=== PATIENT | female | born 2005 | race Caucasian/White ===

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

== ENCOUNTER 2024-02-27 13:33 | Outpatient (CLI) | payer OTHER | END 2024-02-27 23:59 | disposition critical access hospital (66) | LOC: EMS 13:33 | DX: R45.851 Suicidal ideations (principal); R45.89 Other symptoms and signs involving emotional state; R07.1 Chest pain on breathing; R20.2 Paresthesia of skin | CPT/HCPCS: A0425; A0427 ==

== ENCOUNTER 2024-02-27 13:54 | Emergency (ER) | payer OTHER ==
--- NOTE | 2024-02-27 15:01 | ED Physician Documentation ---
PD HPI MHE - Stated complaint Stated Complaint: SI/OD - Chief complaint Chief Complaint: MHE - History obtained from History obtained from: Patient, EMS, Other (Teacher) - Additional information Additional information: Patient is a 18-year-old female with a history of autism spectrum disorder and POTS presenting to the emergency department with Feelings of depression, stressed out and just wanting to go to sleep and never wake up. Patient was at an animal care giver vocational program and relayed to her teacher there that she had taken some drou-fmt-memizke allergy and antianxiety medication this morning.She was unable to tell EMS how much she took but to me she states she only took 1 pill each of her normal medication. She reports significant stressors in her home life as she is scheduled to move to [place] with her mother next month who is being transferred there with the [employer]. She also reports other stressors at home including feeling like she is in the middle of arguments between Grand mother and mother's boyfriend. Patient's teacher is at the bedside and does help with providing some history. Review of Systems Constitutional: denies: Fever Cardiac: denies: Chest pain / pressure Respiratory: denies: Dyspnea GI: denies: Abdominal Pain PD PAST MEDICAL HISTORY - Past Medical History Past Medical History: Yes Other Past Medical History: POTS, Inappropriate sinus tachycardia, anhidrosis, ID, Autism - Past Surgical History Past Surgical History: Yes General: Appendectomy - Present Medications Home Medications: Ambulatory Orders Medication Instructions Recorded Confirmed Loratadine [Claritin] 10 mg PO DAILY 08/19/22 02/27/24 Naproxen [EC-Naprosyn] See Rx Instructions .ROUTE .COMPLEX 08/19/22 02/27/24 cloNIDine [Catapres] 0.1 mg PO ONCE 08/19/22 02/27/24 - Allergies Allergies/Adverse Reactions: Allergies Allergy/AdvReac Type Severity Reaction Status Date / Time No Known Drug Allergies Allergy Verified 08/19/22 15:44 - Social History Does the pt smoke?: No Smoking Status: Never smoker Does the pt drink ETOH?: No Does the pt have substance abuse?: No - Immunizations Immunizations are current?: Yes - POLST Patient has POLST: No PD ED PE NORMAL - General General: Alert and oriented X 3, No acute distress, Well developed/nourished - HEENT HEENT: Atraumatic - Neck Neck: Supple, no meningeal sign - Cardiac Cardiac: RRR, Strong equal pulses - Respiratory Respiratory: No respiratory distress, Clear bilaterally - Abdomen Abdomen: Normal bowel sounds, Soft, Non tender, Non distended - Derm Derm: Warm and dry - Neuro Neuro: Alert and oriented X 3, No motor deficit, Normal speech - Psych Psych: Other (Anxious) Results - Vitals Vitals: Vital Signs - 24 hr 02/27/24 02/27/24 02/27/24 14:36 15:24 15:30 Temperature 37.6 C Heart Rate 110 H 111 H 95 Respiratory 14 19 14 Rate Blood Pressure 106/81 H 148/66 H 153/85 H O2 Saturation 97 99 98 02/27/24 02/27/24 02/27/24 16:00 16:30 17:00 Temperature Heart Rate 117 H 141 H 134 H Respiratory 25 H 25 H 18 Rate Blood Pressure 134/86 H 148/107 H 139/76 H O2 Saturation 100 99 100 Oxygen O2 Source Room air - EKG (time done) 1523 EKG releavant findings:: EKG personally interpreted by author of this note. Relevant findings are: Rate 106, sinus tachycardia, no STEMI, QTc 458 - Labs Labs: Laboratory Tests 02/27/24 02/27/24 02/27/24 16:13 16:40 16:40 WBC 11.3 H RBC 4.99 Hgb 14.9 Hct 46.6 MCV 93.4 MCH 29.9 MCHC 32.0 RDW 11.9 L Plt Count 335 MPV 10.3 Neut # (Auto) 9.1 H Lymph # (Auto) 1.8 [place] # (Auto) 0.3 Eos # (Auto) 0.0 Baso # (Auto) 0.0 Absolute Nucleated RBC 0.00 Nucleated RBC % 0.0 Sodium 139 Potassium 4.4 Chloride 100 L Carbon Dioxide 23 Anion Gap 16.0 H BUN 9 Creatinine 0.8 Estimated GFR (MDRD) 92 Glucose 105 H Calcium 10.8 H Magnesium 2.1 Total Bilirubin 0.6 AST 18 ALT 15 Alkaline Phosphatase 117 Total Creatine Kinase 57 Total Protein 8.7 Albumin 5.1 Globulin 3.6 Albumin/Globulin Ratio 1.4 Lipase 17 TSH 1.16 Urine Color YELLOW Urine Clarity CLEAR Urine pH 8.0 H Ur Specific [place] <=1.005 Urine Protein NEGATIVE Urine Glucose (UA) NEGATIVE Urine Ketones TRACE Urine Occult Blood NEGATIVE Urine Nitrite NEGATIVE Urine Bilirubin NEGATIVE Urine Urobilinogen 0.2 (NORMAL) Ur Leukocyte Esterase NEGATIVE Ur Microscopic Review NOT INDICATED Urine Culture Comments NOT INDICATED Urine HCG, Qual NEGATIVE Salicylates < 1.5 Urine Opiates Screen NEGATIVE Ur Buprenorphine Scrn NEGATIVE Ur Oxycodone Screen NEGATIVE Urine Methadone Screen NEGATIVE Acetaminophen < 0.1 Ur Barbiturates Screen NEGATIVE Ur Tricyclics Screen NEGATIVE Ur Phencyclidine Scrn NEGATIVE Ur Amphetamine Screen NEGATIVE U Methamphetamines Scrn NEGATIVE U Benzodiazepines Scrn NEGATIVE Urine Cocaine Screen NEGATIVE U Cannabinoids Screen NEGATIVE Ur Drug Screen Comment CUTOFF CONC BELOW: Ethyl Alcohol < 10.0 PD Medical Decision Making - ED course Complexity details: reviewed results, re-evaluated patient, d/w patient, d/w family ED course: Is a 18-year-old female with a history of autism spectrum disorder as well as POTS presenting for feeling significant pressure and stress recently due to situations in her home life. She took 1 dose of her anxiety medication which is an kqss-mij-ugmyoxm herbal supplement as well as 1 dose of Benadryl this morning.She then told staff at her vocational school that she goes to in the afternoon that she just wanted to sleep and not wake up and they became concerned and called 911.And all screening labs were obtained which I reviewed and I see no significant findings. Patient does at times have tachycardia but this is in line with her history of POTS and similar to what her heart rates are when I discussed this with her mother. Patient appears to be asymptomatic from this and Is medically cleared. Will place consult for telepsychiatry.She will be signed out to oncoming provider at shift change pending telepsychiatry evaluation. 1725 - Patient smiling, interactive with teacher at the bedside. Mom is on speaker phone. Reviewed workup thus far. The patient states that she only took 1 pill of her anxiety medication (nuvomed stress care dietary supplement) and her allergy medication this morning. She denies taking any more than that. Discussed her heart rate as it has been elevated here. Per mother that is how it always is and her heart rate can elevate up to 150s. She has seen multiple vrt mechanic and at this time they are not wanting to start medications for her. Patient earlier was ambulatory with her heart rate noted to be on the monitor at 150 and appeared asymptomatic as she was talking on the phone. Departure - Departure Clinical Impression: Autism spectrum disorder, Stress and adjustment reaction Condition: Stable Forms: PCP List
[2024-02-27] MEDS: LORazepam 1 MG TABLET PO STA (15:02)
[2024-02-27] MEDS: LIDOCAINE/PRILOCAINE 2.5% CREAM 5 GM TUBE TOP STA (16:00)
[2024-02-27 16:23] LABS: BILIRUBIN,URINE NEGATIVE (NEGATIVE); GLUCOSE, URINE (UA) NEGATIVE (NEGATIVE); KETONES,URINE (UA) TRACE mg/dL (NEGATIVE); LEUKOCYTE ESTERASE, URINE NEGATIVE (NEGATIVE); NITRITE,URINE NEGATIVE (NEGATIVE); OCCULT BLOOD,URINE NEGATIVE (NEGATIVE); PROTEIN,URINE NEGATIVE (NEGATIVE); UROBILINOGEN,URINE 0.2 (NORMAL) E.U./dL (NORMAL)
[2024-02-27 16:26] LABS: CLARITY,URINE CLEAR (CLEAR); HCG UR QUAL NEGATIVE
[2024-02-27 16:37] LABS: AMPHETAMINE SCREEN,URINE NEGATIVE (NEGATIVE); BARBITURATE SCREEN,UR NEGATIVE (NEGATIVE); BENZODIAZEPINES SCREEN, URINE NEGATIVE (NEGATIVE); BUPRENORPHINE SCREEN, URINE NEGATIVE (NEGATIVE); COCAINE SCREEN URINE NEGATIVE (NEGATIVE); METHADONE SCREEN, URINE NEGATIVE (NEGATIVE); METHAMPHETAMINES SCREEN, URINE NEGATIVE (NEGATIVE); OPIATE SCREEN, URINE NEGATIVE (NEGATIVE); OXYCODONE SCREEN, URINE NEGATIVE (NEGATIVE); THC CANNABINOID SCREEN, URINE NEGATIVE (NEGATIVE); TRICYCLIC ANTIDEPRESSANT,URINE NEGATIVE (NEGATIVE)
[2024-02-27 16:46] LABS: BASOPHILS % (AUTO) 0.3 %; HCT - HEMATOCRIT 46.6 % (37.0-47.0); HGB - HEMOGLOBIN 14.9 g/dL (12.0-16.0); LYMPHOCYTES # (AUTO) 1.8 10^3/uL (1.5-3.5); LYMPHOCYTES % (AUTO) 16.1 %; MEAN CORPUSCULAR HEMOGLOBIN 29.9 pg (27.0-31.0); MEAN CORPUSCULAR VOLUME 93.4 fL (81.0-99.0); MEAN PLATELET VOLUME 10.3 fL (7.9-10.8); MONOCYTES # (AUTO) 0.3 10^3/uL (0.0-1.0); MONOCYTES % (AUTO) 2.9 %; NEUTROPHILS # (AUTO) 9.1 10^3/uL (1.5-6.6); NEUTROPHILS % (AUTO) 80.3 %; PLT - PLATELET COUNT 335 10^3/uL (130-450); RED BLOOD COUNT 4.99 10^6/uL (4.20-5.40); RED CELL DISTRIBUTION WIDTH 11.9 % (12.0-15.0); WHITE BLOOD COUNT 11.3 x10^3/uL (4.8-10.8)
[2024-02-27 17:07] LABS: CK- CREATINE KINASE 57 IU/L (30-223); ETOH - ETHANOL < 10.0 mg/dL; LIPASE 17 U/L (11-82); MAGNESIUM 2.1 mg/dL (1.7-2.3)
[2024-02-27 17:12] LABS: ALBUMIN 5.1 g/dL (3.2-5.5); ALBUMIN/GLOBULIN RATIO 1.4 (1.0-2.2); ALKALINE PHOSPHATASE 117 IU/L (42-121); ALT ALANINE AMINOTRANSFERASE 15 IU/L (10-60); AST ASPARTATE AMINOTRANSFERASE 18 IU/L (10-42); BILIRUBIN,TOTAL 0.6 mg/dL (0.2-1.0); BUN - BLOOD UREA NITROGEN 9 mg/dL (6-20); CALCIUM 10.8 mg/dL (8.5-10.3); CARBON DIOXIDE - CO2 23 mmol/L (21-32); CHLORIDE 100 mmol/L (101-111); CREATININE 0.8 mg/dL (0.6-1.3); GFR - MDRD 92 (>89); GLUCOSE 105 mg/dL (74-104); POTASSIUM 4.4 mmol/L (3.5-4.5); SODIUM 139 mmol/L (135-145); TOTAL PROTEIN 8.7 g/dL (6.4-8.9)
[2024-02-27 17:14] LABS: ACETAMINOPHEN < 0.1 ug/mL; SALICYLATE < 1.5 mg/dL
[2024-02-27 17:17] LABS: THYROID STIMULATING HORMONE 1.16 uIU/mL (0.34-5.60)
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
[2024-02-27] MEDS: cloNIDine 0.1 MG TABLET PO STA (23:06)
[2024-02-27] MEDS: AMITRIPTYLINE 10 MG TABLET PO STA (23:10)
[2024-02-27] MEDS: hydrOXYzine PAMOATE 25 MG CAPSULE PO STA (23:10)
--- NOTE | 2024-02-27 23:10 | ED Physician Documentation ---
ED Addendum - Addendum Addendum: 02/27/24 23:09 I took over this patient from Dr. Johnson, see her note for full H&P on this patient. I spoke with the telepsychiatry provider. They recommend inpatient care. Patient is agreeable to this. We will seek placement for this patient. She is voluntary at this time. I have written her usual nighttime medications for her tonight. Patient was signed out to Dr. Dorsey awaiting placement.
--- NOTE | 2024-02-28 02:25 | ED Physician Documentation ---
ED Addendum - Addendum Addendum: 02/28/24 02:24 Patient was accepted to [facility] for voluntary admission. Impression 1 autism 2 adjustment disorder Disposition admit inpatient psychiatric care Condition stable
[2024-02-28 09:09] VITALS: BP 117/69
[2024-02-28 09:46] VITALS: O2SAT 110
== END 2024-02-28 11:34 ==
LOC: EDUNIT# → ED 13:54
DX: F43.20 Adjustment disorder, unspecified (principal); F84.0 Autistic disorder; G90.A Postural orthostatic tachycardia syndrome [POTS]; Z63.79 Other stressful life events affecting family and household; Z79.899 Other long term (current) drug therapy
CPT/HCPCS: 36415; 80053; 80143; 80179; 80306; 81003; 81025; 82077; 82550; 83690; 83735; 84443; 85025; 87635; 90834; 93005; 99285; A9270; J3490; J8499; Q3014; 81001; 87086